=== PATIENT | male | born 1990 | race Caucasian/White ===

== ENCOUNTER 2018-08-31 17:35 | Emergency (ER) | payer OTHER ==
[~2018-08-31] VITALS: Ht 165.1 cm; Wt 65.8 kg
== END 2018-08-31 21:20 | disposition home or self-care (01) ==
LOC: ER 17:35
DX: N48.89 Other specified disorders of penis (principal)

== ENCOUNTER 2018-11-27 09:38 | Emergency (ER) | payer OTHER ==
[~2018-11-27] VITALS: Ht 167.6 cm; Wt 65.8 kg
== END 2018-11-27 12:55 | disposition home or self-care (01) ==
LOC: ER 09:38
DX: J11.1 Influenza due to unidentified influenza virus with other respiratory manifestations (principal)